=== PATIENT | male | born 1945 | race Caucasian/White ===

== ENCOUNTER 2017-07-30 10:44 | Emergency (ER) | payer MEDICARE ==
--- NOTE | 2017-07-30 11:27 | UC ---
Abdominal Pain Male HPI - HPI Summary HPI Summary: 4 DAYS OF SEVERE, SHARP, GRIPPING RIGHT SIDED ABDOMINAL PAIN AND RIGHT FLANK PAIN. INITIALLY PATIENT FELT THE PAIN WAS RADIATING FROM HIS ABDOMEN INTO HIS BACK BUT NOW HE FEELS LIKE IT IS RADIATING FROM HIS BACK TO HIS ABDOMEN. HE DENIES ANY FEVER, URINARY SYMPTOMS, NAUSEA. NO VOMITING OR DIARRHEA. THE PAIN WOKE HIM IN THE MIDDLE OF THE NIGHT AND LASTED FOR SEVERAL HOURS. IBUPROFEN IS HELPFUL. PATIENT STATES THE DAY THE PAIN STARTED HE HAD EATEN A VERY LARGE MEAL BUT SINCE THEN THERE IS NO ASSOCIATION WITH FOOD. ATTACKS ARE OCCURRING DAILY AND SEEM RANDOM. - History of Current Complaint Chief Complaint: UCAbdominalPain Stated Complaint: SIDE ABDOMINAL PAIN Time Seen by Provider: 07/30/17 11:01 Hx Obtained From: Patient Onset/Duration: Sudden Onset, Lasting Days, Still Present Timing: Intermittent Episodes Lasting: - HOURS Severity Initially: Moderate Severity Currently: None Pain Intensity: 8 Pain Scale Used: 0-10 Numeric Location: Discrete At: RLQ Radiates: Yes Radiates to: Flank Character: Colicy, Sharp Aggravating Factor(s): Nothing Alleviating Factor(s): Meds - IBUPROFEN Associated Signs And Symptoms: Positive: Decreased Appetite. Negative: Fever, Constipation, Blood in Stool, Urinary Symptoms, Nausea, Vomiting, Diarrhea - Allergies/Home Medications Allergies/Adverse Reactions: Allergies Allergy/AdvReac Type Severity Reaction Status Date / Time ENVIRONMENTAL Allergy ASTHMA Uncoded 07/30/17 11:02 PMH/Surg Hx/FS Hx/Imm Hx Respiratory History: Asthma Other Neurological History: BPH - Surgical History Surgical History: Yes Surgery Procedure, Year, and Place: 1970 LEFT INGUINAL HERNIA REPAIR, [place], [place]. TONSILLECTOMY AGE 5, - Family History Known Family History: Positive: Cardiac Disease, Hypertension - Social History Alcohol Use: Weekly Substance Use Type: None Smoking Status (MU): Former Smoker Type: Cigarettes Review of Systems Constitutional: Negative Respiratory: Negative Cardiovascular: Negative Gastrointestinal: Abdominal Pain Genitourinary: Negative All Other Systems Reviewed And Are Negative: Yes Physical Exam Triage Information Reviewed: Yes Appearance: Well-Appearing, No Pain Distress, Well-Nourished Vital Signs: Initial Vital Signs Temp 98.6 F 07/30/17 10:55 Pulse 68 07/30/17 10:55 Resp 18 07/30/17 10:55 BP 167/82 07/30/17 10:55 Pulse Ox 94 07/30/17 10:55 Vital Signs Reviewed: Yes Eyes: Positive: Conjunctiva Clear ENT: Positive: Hearing grossly normal Neck: Positive: Supple Respiratory Exam: Normal Cardiovascular Exam: Normal Abdomen Description: Positive: Soft, Distended - SLIGHTLY, Other: - MILDLY TENDER RLQ. NO REBOUND, RIGIDITY OR GUARDING. Negative: CVA Tenderness (R), CVA Tenderness (L), Guarding Bowel Sounds: Positive: Present Musculoskeletal: Positive: No Edema Neurological: Positive: Alert Psychological: Positive: Age Appropriate Behavior Skin: Negative: rashes Diagnostics - Laboratory Diagnostic Studies Completed/Ordered: URINE DIP SP. GR. 1.020, 2+ BLOOD - Radiology CT ABD/PELVIS Xray Interpretation: Positive (See Comments) - Mild RIGHT hydronephrosis is traced to a 0.25 cm maximum dimension stone at the distal aspect of the RIGHT ureterovesicular junction. Multiple urinary bladder stones. Radiology Interpretation Completed By: Radiologist Abd Pain Male Course/Dx - Course Course Of Treatment: AFTER RETURNING TO HIS ROOM FROM CT, PATIENT BECAME NAUSEATED, LIGHTHEADED AND SWEATY. STATES THIS HAPPENS TO HIM EVERY MONTH OR SO WITH ANXIETY/STRESS AND DISCOMFORT. REPORTS HE TENDS TO HAVE VASOVAGAL REACTIONS. HE FELT BETTER AFTER RECEIVING A ZOFRAN AND DECLINES ANY FURTHER EVALUATION OF THESE SYMPTOMS. VSS - Differential Dx/Clinical Impression Provider Diagnoses: NEPHROLITHIASIS/HYDRONEPHROSIS - RIGHT SIDE - Physician Notification/Consults Discussed Patient Care With: Diego Chugn - AGREED WITH PAIN MGMT, FLOMAX AND OFFICE F/U NEXT WEEK Time Discussed With Above Provider: 13:15 Instructed by Provider To: Have Pt Call For Appt. Discharge - Sign-Out/Discharge Documenting (check all that apply): Discharge/Admit/Transfer - Discharge Plan Condition: Stable Disposition: HOME Prescriptions: Tamsulosin CAP* [Flomax CAP*] 0.4 mg PO DAILY #7 cap Patient Education Materials: Kidney Stones (ED) Referrals: Dario Alva MD [Primary Care Provider] - If Needed Additional Instructions: STAY WELL HYDRATED. TAKE THE FLOMAX DAILY. OTC IBUPROFEN OR ALEVE NEEDED FOR DISCOMFORT. STRAIN YOUR URINE TO SEE IF YOU CAN CATCH THE STONE. IF YOU DO CATCH A STONE BRING IT TO YOUR UROLOGY APPOINTMENT NEXT WEEK. GO TO THE [facility] WITHOUT FAIL IF YOU DEVELOP WORSENING INTRACTABLE PAIN, GROSSLY BLOODY URINE, FEVER, INABILITY TO VOID OR ANY OTHER CONCERNING SYMPTOMS. - Billing Disposition and Condition Condition: STABLE Disposition: Home
--- NOTE | 2017-07-30 12:27 | RAD ---
INDICATION: RIGHT side flank pain. Hematuria. Concern for urolithiasis. COMPARISON: No relevant prior exams available on the [facility] for comparison. TECHNIQUE: Multidetector CT images were obtained from the lung bases to the ischial tuberosities. Evaluation of the viscera is limited without IV contrast. Multiplanar reformation. REPORT: Evidence for emphysema at the visualized inferior thorax. Impression from slips of diaphragm noted at the dome of the liver without concern. No CT abnormality of the gallbladder, pancreas, spleen. Negative for CT abnormality of the upper GI, small bowel, or infra cecal appendix. Mild diverticulosis of the colon most prominent at the sigmoid colon without findings of acute diverticulitis. Negative for ascites, free air, or significant hernias. Unremarkable adrenal glands. Mild RIGHT hydronephrosis 0.25 cm maximum dimension stone at the distal aspect of the RIGHT ureterovesicular junction. Mild associated RIGHT perinephric and periureteral inflammatory stranding. Negative for LEFT hydronephrosis. Multiple dependent urinary bladder stones measuring up to 0.7 cm. Small bilateral renal cortical cysts. Symmetric seminal vesicles. Enlarged prostate with coarse calcifications. Negative for lymphadenopathy. Negative for aortoiliac aneurysm. Physiologic partial distention of the IVC. Polyarticular degenerative arthropathy. 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 Negative for spondylolisthesis. Negative for suspicious focal osseous lesions. IMPRESSION: Mild RIGHT hydronephrosis is traced to a 0.25 cm maximum dimension stone at the distal aspect of the RIGHT ureterovesicular junction. Multiple urinary bladder stones.
[2017-07-30] MEDS ORDERED: Ondansetron ODT TAB* 4 MG PO ONE (12:33)
[2017-07-30 14:02] VITALS: BP 158/98
== END 2017-07-30 13:57 | disposition home or self-care (01) ==
LOC: UCEAST 10:44
DX: N13.2 Hydronephrosis with renal and ureteral calculous obstruction (principal); J45.909 Unspecified asthma, uncomplicated; N40.0 Benign prostatic hyperplasia without lower urinary tract symptoms; Z87.891 Personal history of nicotine dependence; Z82.49 Family history of ischemic heart disease and other diseases of the circulatory system
CPT/HCPCS: 74176; 81003; 99212; A9270-GY; G0463

== ENCOUNTER 2018-01-27 14:10 | Day surgery (SDC) | payer MEDICARE ==
[~2018-01-27 14:10] MED LIST: Buffered Lidocaine 0.9% SYRIN* 5 ML/SYR SYRINGE INTRADERM ONE; Lactated Ringers 1000 ML Bag* 1,000 ML IV SCH; ceFAZolin 2 GM PREMIX in ORs 2 GM/50 ML BAG IVPB ONE
[2018-01-27] MEDS ORDERED: Lidocain 1% EPI 1:100,000 * 30 ML MDV ONE (15:25)
[2018-01-27] MEDS ORDERED: Mineral Oil Sterile, TOPICAL* 25 ML BTL ONE (15:25)
[2018-01-27] MEDS ORDERED: Bacitracin OINTMENT* 0.5% 0.5 oz TUBE ONE (15:26)
[2018-01-27] MEDS ORDERED: Bupivacaine 0.25% SDV PF* 10 ML VIAL INJ ONE (15:26)
[2018-01-27] MEDS ORDERED: Naloxone* 0.4 MG/ML 1 ML VIAL IV PRN (15:40)
[2018-01-27] MEDS ORDERED: fentaNYL* 50 MCG/ML 2 ML VIAL (100 MCG VIAL) ONE (15:45)
[2018-01-27] MEDS ORDERED: Propofol* 10 MG/ML 20 ML BTL ONE ×2 (15:48→16:27)
[2018-01-27] MEDS ORDERED: Lidocaine 2% PF * 5 ML VIAL ONE (15:48)
[2018-01-27 17:41] VITALS: BP 151/77
== END 2018-01-27 17:42 | disposition home or self-care (01) ==
LOC: OR 14:10
PROVIDERS: ATTEND Plastic Surgery
DX: D03.22 Melanoma in situ of left ear and external auricular canal (principal); J45.909 Unspecified asthma, uncomplicated; G47.33 Obstructive sleep apnea (adult) (pediatric)
CPT/HCPCS: 88305; A9270-GY; J0690; J2704; J3010; J3490

== ENCOUNTER 2018-05-12 14:08 | Day surgery (SDC) | payer MEDICARE ==
[~2018-05-12 14:08] MED LIST changes: -Buffered Lidocaine 0.9% SYRIN* 5 ML/SYR SYRINGE INTRADERM ONE; +Buffered Lidocaine 1% SYRIN* 1 ML/SYRINGE INTRADERM ONE; +Dexamethasone IV* 4 MG/ML 1 ML (4 MG) IV SLOW PU ONE; +Famotidine IV* 10 MG/ML 2 ML (20 mg) IV ONE; -ceFAZolin 2 GM PREMIX in ORs 2 GM/50 ML BAG IVPB ONE
[2018-05-12] MEDS ORDERED: Dexamethasone IV* 4 MG/ML 1 ML (4 MG) ONE (14:23)
[2018-05-12] MEDS ORDERED: ceFAZolin 2 GM in NS PREMIX(*) 2 GM/100 ML BAG IVPB ONE (14:24)
[2018-05-12] MEDS ORDERED: Famotidine IV* 10 MG/ML 2 ML (20 mg) ONE (14:24)
[2018-05-12] MEDS ORDERED: Buffered Lidocaine 1% SYRIN* 1 ML/SYRINGE INTRADERM ONE (14:24)
[2018-05-12] MEDS ORDERED: fentaNYL* 50 MCG/ML 2 ML VIAL (100 MCG VIAL) ONE (15:42)
[2018-05-12] MEDS ORDERED: Midazolam* 1 MG/ML 5 ML VIAL (5 MG) ONE (15:42)
[2018-05-12] MEDS ORDERED: Ondansetron INJ* 2 MG/ML VIAL ONE (15:43)
[2018-05-12] MEDS ORDERED: Propofol* 10 MG/ML 20 ML BTL ONE (15:43)
[2018-05-12] MEDS ORDERED: Bupivacaine 0.25% SDV PF* 10 ML VIAL INJ ONE ×2 (16:42→16:44)
[2018-05-12] MEDS ORDERED: Lidocain 1% EPI 1:100,000 * 30 ML MDV ONE (16:42)
[2018-05-12] MEDS ORDERED: DiMENhydriNATE IV* 50 MG/ML VIAL IV PUSH PRN (17:11)
[2018-05-12] MEDS ORDERED: Naloxone* 0.4 MG/ML 1 ML VIAL IV PRN (17:11)
[2018-05-12] MEDS ORDERED: Ondansetron INJ* 2 MG/ML VIAL IV PRN (17:11)
[2018-05-12] MEDS ORDERED: Scopolamine 1.5 mg* PATCH TRANSDERM PRN (17:11)
[2018-05-12 18:48] VITALS: BP 149/85
== END 2018-05-12 18:51 | disposition home or self-care (01) ==
LOC: OR 14:08
PROVIDERS: ATTEND Plastic Surgery
DX: C43.4 Malignant melanoma of scalp and neck (principal); J45.909 Unspecified asthma, uncomplicated; G47.33 Obstructive sleep apnea (adult) (pediatric); Z85.820 Personal history of malignant melanoma of skin
CPT/HCPCS: 88305; J0690; J1100; J2250; J2405; J2704; J3010; J3490